=== PATIENT | female | born 1995 | race African-American/Black ===

== ENCOUNTER 2017-01-30 17:13 | Emergency (ER) | payer MEDICAID ==
[~2017-01-30] VITALS: Ht 162.6 cm; Wt 54.4 kg
[2017-01-30 17:57] VITALS: BP 96/61
[2017-01-30] MEDS ORDERED: Tylenol #3 tab (300mg/30mg) ORAL ONE (18:30)
[2017-01-30] MEDS ORDERED: ACETAMINOPHEN-1 EAC1 ORAL (19:14)
[2017-01-30 19:30] VITALS: BP 94/61
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
--- NOTE | 2017-01-31 12:34 | Diagnostic Imaging Report ---
Indication: Left shoulder pain Technique: 3 views of the left shoulder Comparison: None Findings: No acute fractures or dislocations. Joint spaces are preserved. Impression: Negative
--- NOTE | 2017-01-31 12:34 | Diagnostic Imaging Report ---
Indication: Reason For Exam: PAIN Technique: 3 views of the left elbow Comparison: none Findings: No acute fractures. No dislocations. No joint effusion. Joint spaces are preserved. Normal mineralization. No radiopaque foreign body. Impression: Negative
== END 2017-01-30 19:30 | disposition home or self-care (01) ==
LOC: EMR 18:12
DX: S50.02XA Contusion of left elbow, initial encounter (principal); S46.812A Strain of other muscles, fascia and tendons at shoulder and upper arm level, left arm, initial encounter; V49.50XA Passenger injured in collision with unspecified motor vehicles in traffic accident, initial encounter; Y92.410 Unspecified street and highway as the place of occurrence of the external cause
CPT/HCPCS: 99284